=== PATIENT | male | born 1975 | race Caucasian/White ===

== ENCOUNTER 2018-05-31 08:32 | Emergency (ER) | payer OTHER ==
[~2018-05-31] VITALS: Ht 165.1 cm; Wt 81.6 kg
[2018-05-31 08:32] VITALS: BP_SYST 152
[2018-05-31] MEDS ORDERED: ALPRAZolam 0.25 MG TABLET PO ONE (09:30)
[2018-05-31 10:09] VITALS: BP_SYST 133
== END 2018-05-31 09:50 | disposition home or self-care (01) ==
LOC: EDSEX 08:32 → SED 08:32
DX: F41.9 Anxiety disorder, unspecified (principal)
CPT/HCPCS: 93005; 99283